=== PATIENT | female | born 1990 | race Caucasian/White ===

== ENCOUNTER 2020-03-23 23:59 | Emergency (ER) | payer OTHER ==
[~2020-03-23] VITALS: Ht 165.1 cm; Wt 58.1 kg
[2020-03-24 00:05] VITALS: BP_SYST 151
--- NOTE | 2020-03-24 00:14 | NUR ---
Patient to ER bed 7 to gown for evaluation. Side rails up. Report given to YURIY FRIAS.
--- NOTE | 2020-03-24 00:20 | NUR ---
Dr. Drake bedside for pt eval
[2020-03-24] MEDS ORDERED: KETOROLAC TROMETHAMINE 60 MG/2 ML VIAL IM ONE (00:30)
--- NOTE | 2020-03-24 00:30 | NUR ---
PT BIB FAMILY TO ED C/O L ANKLE PAIN. PT STATED WHILE WORKING T[employer] AT [employer] THRU TONIGHT AND STS THEY DOING SOME JUMPING AND TRAIL. NO OTHER COMPLAINTS AND OR INJURIES NOTED VSS NO S/S OF ACUTE DISTRESS RESTING ON GURThe [employer] Rogers RAILS UP
--- NOTE | 2020-03-24 00:50 | NUR ---
Portable X Ray bedside, well tolerated
--- NOTE | 2020-03-24 01:37 | NUR ---
Patient given written and verbal discharge instructions and verbalizes understanding. ER MD discussed with patient the results and treatment provided. Patient in stable condition. ID arm band removed. Rx of IBUPROFEN given. Patient educated on pain management and to follow up with PMD. Pain Scale 0/10. Opportunity for questions provided and answered. Medication side effect fact sheet provided.
[2020-03-24 01:39] VITALS: BP_SYST 151
== END 2020-03-24 01:37 | disposition home or self-care (01) ==
LOC: SED 23:59
DX: S93.402A Sprain of unspecified ligament of left ankle, initial encounter (principal); X50.1XXA Overexertion from prolonged static or awkward postures, initial encounter; Y93.89 Activity, other specified; Y92.89 Other specified places as the place of occurrence of the external cause; Y99.8 Other external cause status
CPT/HCPCS: 73610; 73630; 96372; 99284; J1885